=== PATIENT | female | born 1945 | race Caucasian/White ===

== ENCOUNTER 2017-10-17 17:46 | Emergency (ER) | payer OTHER ==
[~2017-10-17] VITALS: Ht 154.9 cm; Wt 54.9 kg
[2017-10-17 17:52] VITALS: BP 180/91
== END 2017-10-17 18:22 | disposition home or self-care (01) ==
LOC: M.ERS 17:46
DX: S50.01XA Contusion of right elbow, initial encounter (principal); F17.210 Nicotine dependence, cigarettes, uncomplicated; W22.8XXA Striking against or struck by other objects, initial encounter; Y93.89 Activity, other specified; Y92.89 Other specified places as the place of occurrence of the external cause; Y99.8 Other external cause status

== ENCOUNTER 2018-01-05 17:39 | Emergency (ER) | payer OTHER ==
[~2018-01-05] VITALS: Ht 165.1 cm; Wt 68.0 kg
[2018-01-05] MEDS ORDERED: MEDROLDOSEPACK PO (17:59)
[2018-01-05] MEDS ORDERED: ULTRAM 50MG TAB50 MG PO (18:01)
[2018-01-05] MEDS ORDERED: VISTARIL 25 MG25 M1 PO (18:01)
[2018-01-05] MEDS ORDERED: ZOVIRAX800 MG PO (18:01)
[2018-01-05 18:04] VITALS: BP 146/85
== END 2018-01-05 18:05 | disposition home or self-care (01) ==
LOC: M.ERS 17:39
DX: B02.9 Zoster without complications (principal)